=== PATIENT | male | born 1985 | race African-American/Black ===

== ENCOUNTER 2018-06-24 07:57 | Emergency (ER) | payer SELFPAY ==
[~2018-06-24] VITALS: Ht 177.8 cm; Wt 109.0 kg
[2018-06-24 07:59] VITALS: BP 140/80
== END 2018-06-24 08:21 | disposition home or self-care (01) ==
LOC: ER 07:57
DX: Z02.89 Encounter for other administrative examinations (principal); E66.9 Obesity, unspecified; Z68.34 Body mass index [BMI] 34.0-34.9, adult
CPT/HCPCS: 99283